=== PATIENT | female | born 1950 | race Caucasian/White ===

== ENCOUNTER 2023-06-04 16:28 | Inpatient (IN) | payer MEDICARE, SELFPAY ==
[2023-06-04 13:22] VITALS: BP 113/73
--- NOTE | 2023-06-04 14:03 | ED.GENMED ---
History of Present Illness
General
Chief Complaint: Rectal Bleeding
Source: patient and spouse
Time Seen by Provider: 06/04/23 13:29
Travel History
Have you had any contact with someone who has COVID-19?: No
Do you have any symptoms of coronavirus? Fever > 100 degrees, chills, cough, shortness of breath, sore throat, loss of taste or smell, muscle aches, or headache?: No
History of Present Illness
History of Present Illness:
72-year-old female with past medical history of CVA, hypertension, defibrillator placement presenting to the emergency department for evaluation of dark stool for about a week, coincided with symptoms of her having a URI at the beginning of all the
symptoms, stating she had a nonproductive cough and chest congestion. Patient went to her primary care doctor who prescribed her a cephalosporin and Tessalon Perles which she states she has been taking but without any relief of her symptoms and
notes that since starting the antibiotic she has had very loose stool. Patient notes that the diarrhea is usually only occurring after eating something. Patient was concerned because the diarrhea appeared dark and thought she may have some
bleeding. She denies any abdominal pain, nausea, vomiting, fevers, chills, rigors, lightheadedness, weakness or any other concerns.
Past History
Past History
ED Past Medical History: CVA, HTN, Hypercholesterolemia and Other (Carotid stenosis)
ED Past Surgical History: Cardiac (Defibrillator) and Other (CEA)
Social History
Tobacco: Former smoker (Quit 4 years ago after her stroke)
Alcohol: None
Drug: None
Personal:
Living: with family
Review of Systems
Review of Systems
All Other Systems: ROS reviewed and negative except as documented in HPI and ROS
Phy Exam
Physical Exam
Physical Exam:
GENERAL: Alert , in no apparent distress
EYE: clear conjunctiva b/l
HEAD: NCAT
ENT: o/p clr, mmm.
CARDIAC: Regular rate and rhythm .
LUNGS: Clear breath sounds bilaterally, no acute respiratory distress, no wheezes/rales/rhonchi, nonproductive cough sporadically noted
ABDOMEN: Soft, without focal tenderness, no r/g, no cvat
Rectal exam: Chaperoned by ED RN Pauletteaied, grayish stool, heme-negative
NEUROLOGICAL: Alert and oriented
SKIN: Warm and dry, skin intact.
MUSCULOSKELETAL: No edema, well perfused.
PSYCH: Normal and appropriate interaction.
Scores
Heart Failure Risk
Heart Failure Risk Score: Not Applicable
Heart Score for Chest Pain Patients
STEMI patient?: Not applicable
Withdrawal Assessment of Alcohol
Withdrawal Assessment Completed?: Not applicable
Course
Orders/Labs/Results
Orders:
Orders
06/04/23 13:45
IV Insert/Care/Rem.- Treatment PRN
06/04/23 13:49
Electrocardiogram (*1) Urgent
Reason for Study: Abdominal Pain
EKG- Treatment ONCE
Chest [CR Chest - 2 Views ] Urgent
Comment:
Reason For Exam: sob
06/04/23 13:53
STOOL [C difficile Antigen & Toxins] Urgent
FAVIOLA Source: Feces/Stool
Specimen Description:
Stool Culture Urgent
FAVIOLA Source: Feces/Stool
Specimen Description:
06/04/23 13:54
COVID-19 Antigen Urgent
Source: Nasal Swab
Complete Blood Count/With Diff Urgent
Comprehensive Metabolic Panel Urgent
Influenza A+B Rapid Molecular Urgent
FAVIOLA Source: Nasal Swab
Specimen Description:
06/04/23 14:24
0.9% Sodium Chloride 1000 ml [Nss] 1,000 ml IV BOLUS
06/04/23 15:19
CefTRIAXone [Rocephin] 1,000 mg IV NOW STA
Doxycycline [Vibramycin] 100 mg PO NOW STA
06/04/23 15:24
Guaifenesin/Codeine Solution [Robitussin AC] 5 ml PO NOW STA
06/04/23 15:58
Procalcitonin Urgent
PCT Algorithmm Indication: Respiratory
06/04/23 15:59
Admit/Transfer Patient As Directed
Co-Sign Provider:
Level of Care: Inpatient admission
Assign to:: Medical/Surgical
Physician / Group: Efra Perry
Diagnosis: Pneumonia/COPD
Reason for Hospitalization: nebs, antibiotics
Expected length of stay greater than two midnights?: Yes
ELOS- Estimated Length of Stay in days: 3
I certify the patient meets the requirements for IP care: Yes
06/04/23 16:04
Code Status As Directed
Resuscitation Status: Full Code
06/04/23 16:11
Legionella Urinary Antigen Urgent
FAVIOLA Source: Urine
Specimen Description:
Strep pneumoniae Antigen Urgent
FAVIOLA Source: Urine
Specimen Description:
Abnormal Lab Results
06/04/23
13:54
RBC 5.43 H 10^6/uL
(4.20-5.40)
Hgb 16.3 H g/dL
(12.0-16.0)
Hct 47.7 H %
(37.0-47.0)
Absolute Neuts (auto) 7.5 H 10^3/uL
(1.4-6.5)
Absolute Lymphs (auto) 1.1 L 10^3/uL
(1.2-3.4)
Neutrophils % 80.3 H %
(42.2-75.2)
Lymphocytes % 12.0 L %
(20.5-51.1)
Carbon Dioxide 32 H mmol/L
(22-30)
BUN 42 H mg/dl
(7-17)
Creatinine 1.5 H mg/dL
(0.6-1.0)
Glucose 124 H mg/dl
(70-99)
AST 47 H U/L
(14-36)
Alkaline Phosphatase 134 H U/L
(38-126)
06/04/23 13:54
06/04/23 13:54
Vital Signs
Initial and Last Documented VS:
Initial Vital Signs
Temp Pulse Resp BP Pulse Ox
97.8 F 88 18 113/73 94
06/04/23 13:22 06/04/23 13:22 06/04/23 13:22 06/04/23 13:22 06/04/23 13:22
Last Documented Vital Signs
Temp Pulse Resp BP Pulse Ox
97.8 F 73 18 105/82 95
06/04/23 13:22 06/04/23 15:15 06/04/23 13:22 06/04/23 15:15 06/04/23 15:15
MDM/Problems Addressed
Differential Diagnosis Includes:
Viral URI, pneumonia, antibiotic associated diarrhea, C. difficile colitis thought to be less likely given patient notes 1 episode of diarrhea daily (would expect this to be more persistent), electrolyte disturbance
MDM/Problems Addressed:
72-year-old female present emergency department for evaluation of dark stool x 1 week accompanied with diarrhea. Patient does not show any signs of hemodynamic instability and stool was heme-negative so I do not have concern for acute GI bleeding.
I do suspect patient's diarrhea is correlated with use of her antibiotic for the pneumonia she was diagnosed with by her primary care physician. Patient still notes symptomatic from her URI and I suspect that it was likely she either had a viral
URI versus antibiotic failure. Will obtain labs, chest x-ray and EKG. Reassessment following
*Radiology
Radiology exam reviewed: preliminary read by ED provider (Left lower lobe pneumonia)
*Pulse Oximetry
Patient hypoxic: no
*Critical Care Note
Total Time (30-74mins, 75-104mins- exclusive of procedures): Not Applicable
Patient Management
Discussion with other providers: Hospitalist
Escalation/DeEscalation of care consider admission/obs:
During patient's workup her pulse ox dropped into the upper 80s so we placed patient on 2 L via nasal cannula with good response. Chest x-ray does show a left lower lobe pneumonia. She does have a leftward shift despite no leukocytosis on her lab
work. Chemistry reveals an acute kidney injury and prerenal azotemia. Will treat with 1 L IV fluids. Due to worsening symptoms with outpatient antibiotics will admit for IV antibiotics and monitoring. Patient was unable to have a bowel movement
while in the ED but stool studies have been ordered. Hospitalist is aware and accepts patient for continued evaluation and treatment.
ED Attending Note
-
Portions of this chart may have been created with voice recognition software.� Occasional wrong word or��sound alike� substitutions may have occurred due to the inherent limitations of voice recognition software.
Discharge Plan
Departure
Patient Disposition: Admit
Date of Disposition: 06/04/23
Time of Disposition: 15:24
Presentation/result/management discussed w/ accepting MD/DO: Hospitalist
Discharge Problem:
Pneumonia, BREN (acute kidney injury), Diarrhea
Prescriptions:
No Action
atorvastatin 40 MG tablet
40 mg PO QPM
hydrochlorothiazide 12.5 MG capsule
12.5 mg PO DAILY
tizanidine 2 mg Tablet
2 mg PO Q8HPRN PRN (Reason: spasms)
aspirin 81 mg Tablet,Delayed Release (Dr/Ec)
81 mg PO DAILY
zinc sulfate 50 mg zinc (220 mg) Tablet
50 mg PO DAILY
ascorbic acid (vitamin C) [Vitamin C] 500 mg Tablet
500 mg PO DAILY
ferrous sulfate 325 mg (65 mg iron) Tablet
325 mg PO DAILY
ropinirole 0.5 mg Tablet
0.5 mg PO TID
vitamin B complex [B Complete] Tablet
1 tab PO DAILY
metoprolol tartrate 25 mg Tablet
25 mg PO BID
cholecalciferol (vitamin D3) [Vitamin D3] 25 mcg (1,000 unit) Tablet
25 mcg PO DAILY
magnesium oxide 200 mg magnesium Tablet
200 mg PO BID
omeprazole magnesium [Prilosec OTC] 20 MG tablet,delayed release (DR/EC)
20 mg PO BID
Referrals:
Dana Ruggiero CRNP [Family Provider] -
Interventions
Interventions:
*Risk Screen - Suicide Last Done: 06/04/23 13:43
*General Assessment Last Done: 06/04/23 13:22
*Neglect/Abuse Screening Last Done: 06/04/23 13:43
ED- Fall Risk Assessment Last Done: 06/04/23 13:43
*ED COVID-19 Vaccine History Last Done: 06/04/23 13:22
SS-Cbhxiy-Cmyoblexsh Assessment Last Done: 06/04/23 13:43
ED- Cardiac Assessment Last Done: 06/04/23 13:43
ED- Pulmonary Assessment Last Done: 06/04/23 13:43
[2023-06-04 14:04] LABS: % Basophils 0.4 % (0-2); % Eosinophils 0.3 % (0-6); % Immature Granulocytes 0.3 % (0-0.5); % Monocytes 6.7 % (1.7-9.3); % Neutrophils 80.3 % (42.2-75.2); Absolute Lymphocytes 1.1 10^3/uL (1.2-3.4); Absolute Monocytes 0.6 10^3/uL (0.1-0.6); Absolute Neutrophils 7.5 10^3/uL (1.4-6.5); Hematocrit 47.7 % (37.0-47.0); Hemoglobin 16.3 g/dL (12.0-16.0); Mean Corp Hgb Conc. 34.2 g/dL (33.0-37.0); Mean Corpuscular Volume 87.8 fL (81.0-99.0); Mean Platelet Volume 9.7 fL (7.4-10.4); Nucleated Red Blood Cells % 0 %; Platelet Count 327 10^3/uL (130-400); Red Blood Cell Count 5.43 10^6/uL (4.20-5.40); Red Cell Dist. Width 12.4 % (11.5-14.5); White Blood Cell Count 9.3 10^3/uL (4.8-10.8)
[2023-06-04 14:17] LABS: ALT (SGPT) 35 U/L (0-35); AST (SGOT) 47 U/L (14-36); Albumin 4.4 g/dl (3.5-5.0); Alkaline Phosphatase 134 U/L (38-126); Blood Urea Nitrogen 42 mg/dl (7-17); Calcium 9.3 mg/dl (8.4-10.2); Carbon Dioxide 32 mmol/L (22-30); Chloride 98 mmol/L (98-107); Glucose 124 mg/dl (70-99); Potassium 3.5 mmol/L (3.5-5.1); Sodium 138 mmol/L (135-145); Total Bilirubin 0.9 mg/dl (0.2-1.3); Total Protein 7.5 g/dl (6.3-8.2); eGFR 37.03
[2023-06-04] MEDS: NSS 1000 IV ×2 (14:33→21:13)
[2023-06-04 14:42] LABS: COVID-19 Antigen Negative (Negative)
[2023-06-04 15:15] VITALS: BP 105/82
[2023-06-04] MEDS: VIBRAMYCIN 100 MG PO (15:41)
[2023-06-04] MEDS: ROBITUSSIN AC 5 ML PO (15:41)
[2023-06-04] MEDS: ROCEPHIN 1000 MG IV (15:41)
--- NOTE | 2023-06-04 16:18 | HPS.HSE ---
Addendum entered and electronically signed by Efra Perry MD 06/04/23 16:45:
72-year-old female with a past medical history of former smoker, hyperlipidemia, CVA, hypertension, and gastroesophageal reflux disease presents with worsening respiratory symptoms for 2 weeks despite taking 10 days of cefuroxime. She denies fever,
denies chest pain. She has been having black diarrhea, this is different from the color of her stools from iron.
Chest x-ray is negative for acute abnormality.
She is influenza negative, COVID-negative.
Auscultation reveals left basilar crackles.
Treat with IV antibiotics, bronchodilators
Check procalcitonin, check urine Legionella antigen/strep antigen, check sputum Gram stain and culture, check chest ultrasound and echocardiogram. She is not wheezing, will hold on steroids.
For her black stools, she is heme-negative in the ER. Will treat with Protonix 40 mg IV twice daily, trend hemoglobin.
She has acute kidney injury, from dehydration and diarrhea. Give IV fluids, no nephrotoxic drugs/NSAIDs, trend creatinine.
I have personally seen and examined the patient, and agree with the plan of care as documented by Skye Coughlin PA-C.
Advance care planning discussed, patient is a full code.
All other issues as outlined by the advanced care practitioner.
Total time spent to see the patient on the floor, examine the patient, review data and lab results, discuss treatment plan with patient, nursing staff around 75 minutes.
Original Note:
Family Physician
-
Family Physician: MURIEL Alonso
Chief Complaint
-
Cough, and black diarrhea
History of Present Illness
Patient is a 72-year-old female past medical history of CVA, hypertension, hyperlipidemia who presents with persistent cough and black diarrhea. Patient reports she started with symptoms of upper respiratory infection about 2 weeks ago. She saw
her primary care provider who started her on cefuroxime which she has taken for the past 10 days. She reports despite antibiotic she continues with significant cough. She describes the cough as moist, but nonproductive. She denies associated
shortness of breath, chest pain, fever, sweats or chills. She admits to generalized weakness and fatigue. She also notes black diarrhea which has been ongoing since she started the oral antibiotic. She does admit to taking iron, but states her
stools are usually brown. She denies any abdominal pain, nausea, or vomiting.
Medical History
Past Medical History
Past Medical History: Reports Other
Additional Past Medical History:
CVA
Essential Hypertension
Hyperlipidemia
Moderate Mitral Regurgitation
Restless Less Syndrome
Past Surgical History: Reports Other
Additional Past Surgical History:
Right CEA
Social History
Tobacco: Former Smoker (Quit in 2019)
Family History
Family History: Not pertinent
Allergies / Home Medications
Allergies reflects when Allergies were last updated in [facility].
Home Medications with original date entered in [facility]
Allergy/Medication List:
Allergies
Allergy/AdvReac Type Severity Reaction Status Date / Time
seasonal Allergy runny nose Uncoded 06/04/23 13:26
Home Medications
atorvastatin 40 mg tablet 40 mg PO QPM High cholesterol 10/24/19
hydrochlorothiazide 12.5 mg capsule 12.5 mg PO DAILY Blood pressure 10/24/19
ascorbic acid (vitamin C) 500 mg tablet (Vitamin C) 500 mg PO DAILY Supplement 06/04/23
aspirin 81 mg tablet,delayed release 81 mg PO DAILY Blood Clot Prevention/Tx 06/04/23
cholecalciferol (vitamin D3) 25 mcg (1,000 unit) tablet (Vitamin D3) 25 mcg PO DAILY Supplement 06/04/23
ferrous sulfate 325 mg (65 mg iron) tablet 325 mg PO DAILY Supplement 06/04/23
magnesium oxide 200 mg PO BID Supplement 06/04/23
metoprolol tartrate 25 mg tablet 25 mg PO BID Blood Pressure 06/04/23
omeprazole magnesium 20 mg tablet,delayed release (Prilosec OTC) 20 mg PO BID Gastrointestinal Issue 06/04/23
ropinirole 0.5 mg tablet 0.5 mg PO TID Neurological Condition 06/04/23
tizanidine 2 mg tablet 2 mg PO Q8HPRN PRN spasms 06/04/23
vitamin B complex 1 tab PO DAILY Supplement 06/04/23
zinc sulfate 50 mg zinc (220 mg) tablet 50 mg PO DAILY Supplement 06/04/23
Review of Systems
-
A 12 point ROS was completed and negative except as noted: Yes
Constitutional: Denies Fever or Chills
Respiratory: Reports See HPI
Cardiac: Denies Chest Pain or Palpitations
Physical Exam
Vital Signs
Vital Signs
Temp Pulse Resp BP Pulse Ox
97.8 F 73 18 105/82 95
06/04/23 13:22 06/04/23 15:15 06/04/23 13:22 06/04/23 15:15 06/04/23 15:15
Physical Exam
General: Comfortable and Conversant
HEENT: Anicteric, Moist mucous membranes and Oxygen (Nasal cannula)
Respiratory: Rales (Left base) and Rhonchi (Diffuse)
Cardiac: S1/S2 and Regular Rhythm
GI: Soft and Non Tender
Rectal: Hem Negative (Per ED Provider)
Musculoskeletal: No Clubbing, No Cyanosis and No Edema
Skin: Warm, Dry and Rash
Neuro: Awake, Alert, Oriented and Nonfocal/grossly intact
Laboratory Results
-
06/04/23 13:54
06/04/23 13:54
Laboratory Results
Total Bilirubin 0.9 mg/dl (0.2-1.3) 06/04/23 13:54
AST 47 U/L (14-36) H 06/04/23 13:54
ALT 35 U/L (0-35) 06/04/23 13:54
Alkaline Phosphatase 134 U/L (38-126) H 06/04/23 13:54
Data Reviewed
-
Diagnostic Radiology: Report Reviewed by me
Lab Data: Labs Reviewed by me
Impression/Plan
-
Acute Bronchitis with possible underlying chronic lung disease
-Continue Zithromax and Rocephin
-Continue Duoneb and Pulmicort Neb
-Continue Mucinex
-Encourage use of incentive spirometer and Acapella device
Acute Kidney Injury secondary to volume depletion in setting of diarrhea
-Hold HCTZ
-Give IVFs overnight
-Recheck creatinine in AM
Black Diarrhea, likely antibiotic associated diarrhea
-Heme-Negative in ED - Will continue to heme test and monitor Hgb
-Continue probiotic
Right Temporal Lobe CVA in 2019 s/p Right CEA
-Continue Aspirin
Essential Hypertension
-Continue metoprolol
-HCTZ on hold
Hyperlipidemia
-Continue atorvastatin
Restless Less Syndrome
-Continue ropinirole
DVT proph: SCDs
Code Status: Full Code
[2023-06-04 18:06] LABS: Procalcitonin < 0.05 ng/ml (0.0-0.25)
[2023-06-04 18:08] VITALS: BP 133/70
[2023-06-04 20:25] VITALS: BMI 30.8
[2023-06-04 20:32] VITALS: BP 137/78
[2023-06-04] MEDS: DUONEB 3 ML INH (20:46)
[2023-06-04] MEDS: PULMICORT 0.5 MG INH (20:46)
[2023-06-04] MEDS: REQUIP 0.5 MG PO (21:12)
[2023-06-04] MEDS: MUCINEX 600 MG PO (21:12)
[2023-06-04] MEDS: FLORASTOR 250 MG PO (21:12)
[2023-06-04] MEDS: PROTONIX 40 MG PO (21:12)
[2023-06-04] MEDS: LOPRESSOR 25 MG PO (21:12)
[2023-06-04] MEDS: LIPITOR 40 MG PO (21:12)
[2023-06-05 00:02] VITALS: BP 130/52
--- NOTE | 2023-06-05 04:58 | PTCARENOTE ---
Pt arrived on floor @8:30. Able to walk into room with no assistance. Pt in stable condition, oriented to room and call sams. Will continue to monitor
[2023-06-05 07:30] VITALS: BP 140/74
[2023-06-05] MEDS: ZINC SULFATE 220 MG PO (07:46)
[2023-06-05] MEDS: REQUIP 0.5 MG PO ×3 (07:46→21:54)
[2023-06-05] MEDS: ZITHROMAX 500 MG PO (07:47)
[2023-06-05] MEDS: B COMPLEX w/VITAMIN C 1 CAPLET PO (07:48)
[2023-06-05] MEDS: ASPIR LOW (ENTERIC COATED) 81 MG PO (07:48)
[2023-06-05] MEDS: PROTONIX 40 MG PO ×2 (07:48→21:54)
[2023-06-05] MEDS: VITAMIN C 500 MG PO (07:48)
[2023-06-05] MEDS: MUCINEX 600 MG PO ×2 (07:48→21:54)
[2023-06-05] MEDS: FLORASTOR 250 MG PO ×2 (07:49→21:54)
[2023-06-05] MEDS: FEOSOL 325 MG PO (07:49)
[2023-06-05] MEDS: VITAMIN D3 (cholecalciferol) 25 MCG PO (07:49)
[2023-06-05] MEDS: LOPRESSOR 25 MG PO (07:50)
--- NOTE | 2023-06-05 08:15 | W.PN.HOSP.TC ---
Today's Communication/Plan
-
Check chest ultrasound
Consult pulmonology
Assessment / Plan
Assessment / Plan
72-year-old female with a past medical history of former smoker, hyperlipidemia, CVA, hypertension, and gastroesophageal reflux disease presents with worsening respiratory symptoms for 2 weeks despite taking 10 days of cefuroxime.� She denies fever,
denies chest pain.� She has been having black diarrhea, this is different from the color of her stools from iron
#Postinfectious hypoxia
#Recent upper respiratory tract infection
Status post 10 days of oral cefuroxime prior to admission
Procalcitonin negative, will discontinue antibiotics
Currently requiring 2 L of oxygen, wean as tolerated
Patient was a former smoker, quit 4 years ago
Continue bronchodilators, consult pulmonology
#Acute kidney injury
Secondary to dehydration
Hold hydrochlorothiazide, resolved with IV fluids
#Left basilar crackles
Check chest ultrasound to evaluate for pleural effusion
#Moderate mitral regurgitation
Echo 05/14/23:
�Normal biventricular size and systolic function without regional wall motion
�abnormality. Estimated LVEF 55-60%.
�Mild concentric left ventricular hypertrophy.
�Moderate eccentric mitral regurgitation.
�Aortic sclerosis without stenosis. Trace aortic regurgitation.
#Black diarrhea
Resolved, she has not had a bowel movement since admission
Continue probiotic, she is currently on iron supplements
Essential Hypertension
-Continue metoprolol
-HCTZ on hold
Hyperlipidemia
-Continue atorvastatin
Restless Less Syndrome
-Continue ropinirole
DVT proph: SCDs
Full Code
Total time spent to see the patient on the floor, examine the patient, review data and lab results, discuss treatment plan with patient, nursing staff around 51 minutes.
Physical Exam
General: Appears to not feel well, but in no acute distress
HEENT: Normocephalic, Atraumatic, EOMI, MMM
Respiratory: Left basilar crackles
Cardiac: Normal S1/S2, Regular Rate and Rhythm
GI: Soft, Nontender, Nondistended, Normal Bowel Sounds
Extremities: No Clubbing, Cyanosis, or Edema
Anticipated Discharge: Within 24 hours
Subjective/Interval History
-
Date of Service: June 05, 2023
Patient feels much better today. Denies shortness of breath. Cough improved.
Objective Data
-
Labs:
Laboratory Results
06/05/23
06:00
WBC Pending
Hgb Pending
Hct Pending
Plt Count Pending
Sodium Pending
Potassium Pending
Chloride Pending
Carbon Dioxide Pending
BUN Pending
Creatinine Pending
Glucose Pending
Calcium Pending
Vital Signs:
Vital Signs
Temp Pulse Resp BP Pulse Ox
97.8 F 75 17 140/74 93
06/05/23 07:30 06/05/23 07:50 06/05/23 07:30 06/05/23 07:50 06/05/23 07:30
I&O
06/04/23 06/05/23 06/06/23
06:59 06:59 06:59
Intake Total 750 / 750
Balance 750 / 750
[2023-06-05] MEDS: PULMICORT 0.5 MG INH ×2 (08:17→20:52)
[2023-06-05] MEDS: DUONEB 3 ML INH (08:17)
[2023-06-05 09:02] LABS: Hematocrit 44.7 % (37.0-47.0); Hemoglobin 14.9 g/dL (12.0-16.0); Mean Corp Hgb Conc. 33.3 g/dL (33.0-37.0); Mean Corpuscular Hgb 29.7 pg (27.0-31.0); Mean Corpuscular Volume 89.2 fL (81.0-99.0); Mean Platelet Volume 9.9 fL (7.4-10.4); Platelet Count 278 10^3/uL (130-400); Red Blood Cell Count 5.01 10^6/uL (4.20-5.40); Red Cell Dist. Width 12.7 % (11.5-14.5); White Blood Cell Count 6.6 10^3/uL (4.8-10.8)
[2023-06-05 09:29] LABS: Blood Urea Nitrogen 33 mg/dl (7-17); Calcium 8.4 mg/dl (8.4-10.2); Carbon Dioxide 29 mmol/L (22-30); Chloride 101 mmol/L (98-107); Estimated Creatinine Clearance 55 ml/min; Glucose 134 mg/dl (70-99); Potassium 3.1 mmol/L (3.5-5.1); Sodium 137 mmol/L (135-145); eGFR > 60.00
[2023-06-05 11:00] LABS: Magnesium 2.7 mg/dl (1.6-2.3)
[2023-06-05] MEDS: KCL 40 MEQ PO ×2 (11:32→15:57)
--- NOTE | 2023-06-05 14:01 | CON.PUL ---
Consultation
Consultation Request
Date/Time Consultation Requested: 06/05/2023
Date/Time Consultation Performed: 06/05/2023
Reason for Consultation: Shortness of breath, bronchitis
Medical History
-
History of Present Illness:
History obtained from the chart, reviewing outpatient records and from the patient. Pleasant 72-year-old female with history of hypertension, cryptogenic stroke 4 years ago, significant tobacco history, mitral regurgitation presents on 06/04/2023
with bronchitis. She describes about 10 to 15 days of chronic bronchitis, difficult to expectorate, chest congestion. She also had history of dark stool after defibrillator placement. She was given outpatient antibiotic and antitussive therapy
without any improvement. This led to worsening diarrhea. She denies any fevers, chills, falls, syncope, swallowing issues. Upon arrival to [facility], afebrile, pulse 80, breathing 18, blood pressure 113/73, 94%. She was heme-negative in
the ED. We are asked to help from a pulmonary standpoint
Of note, patient feels her cough has improved significantly since admission. She is noted to have significant productive cough with few teaspoons of thick mucus, no blood. She is ambulating the myrick without difficulty
.
PMH: History of cryptogenic stroke 2019, hypertension, hyperlipidemia, restless leg syndrome, mitral regurgitation, peripheral arterial disease with right carotid endarterectomy
Past Medical History
Past Medical History: None (See above)
Past Surgical History: None (See above)
Social History
Tobacco: Former Smoker ([id number] history of smoking quit 2019)
Alcohol: Occasional
Drug: None
Personal:
Living: With Family
Employment: Retired
Family History
Family History: Other (Negative for lung disease, lung cancer. There is a history of leukemia in her mother, 82)
Allergies / Home Medications
Allergies
Allergy/AdvReac Type Severity Reaction Status Date / Time
pollen extracts Allergy SEASONAL-RUNNY Verified 06/04/23 20:15
NOSE
Home Medications
Medication Instructions Recorded Confirmed Last Taken Type
atorvastatin 40 mg tablet 40 mg PO QPM High cholesterol 10/24/19 06/04/23 06/03/23 History
hydrochlorothiazide 12.5 mg capsule 12.5 mg PO DAILY Blood pressure 10/24/19 06/04/23 06/04/23 History
ascorbic acid (vitamin C) 500 mg 500 mg PO DAILY Supplement 06/04/23 06/04/23 06/04/23 History
tablet (Vitamin C)
aspirin 81 mg tablet,delayed 81 mg PO DAILY Blood Clot 06/04/23 06/04/23 06/04/23 History
release Prevention/Tx
cholecalciferol (vitamin D3) 25 25 mcg PO DAILY Supplement 06/04/23 06/04/23 06/04/23 History
mcg (1,000 unit) tablet (Vitamin
D3)
ferrous sulfate 325 mg (65 mg 325 mg PO DAILY Supplement 06/04/23 06/04/23 06/04/23 History
iron) tablet
magnesium oxide 200 mg PO BID Supplement 06/04/23 06/04/23 06/04/23 History
metoprolol tartrate 25 mg tablet 25 mg PO BID Blood Pressure 06/04/23 06/04/23 06/04/23 History
omeprazole magnesium 20 mg 20 mg PO BID Gastrointestinal Issue 06/04/23 06/04/23 06/04/23 History
tablet,delayed release (Prilosec
OTC)
ropinirole 0.5 mg tablet 0.5 mg PO TID Neurological 06/04/23 06/04/23 06/04/23 History
Condition
tizanidine 2 mg tablet 2 mg PO Q8HPRN PRN spasms 06/04/23 06/04/23 Unknown History
vitamin B complex 1 tab PO DAILY Supplement 06/04/23 06/04/23 06/04/23 History
zinc sulfate 50 mg zinc (220 mg) 50 mg PO DAILY Supplement 06/04/23 06/04/23 06/04/23 History
tablet
Review of Systems
-
All other systems: Negative unless noted
Vitals / Labs / Diagnostic Testing
Vital Signs
Temp Pulse Resp BP Pulse Ox
97.8 F 89 20 140/74 97
06/05/23 07:30 06/05/23 08:23 06/05/23 08:23 06/05/23 07:50 06/05/23 08:23
Lab Data
06/05/23 08:19
06/05/23 08:19
Microbiology
06/04/23 22:10 Sputum Gram Stain - Preliminary
06/04/23 13:54 Nasal Swab Influenza Types A & B (STEPHON) - Final
Negative for Influenza A & B, NAAT
Negative results must be combined with clinical observations
and patient history.
Nucleic Acid Amplification test (NAAT)performed on the
[employer] platform.
Diagnostic Testing:
Physical Exam
-
HEENT: Normocephalic, Anicteric and Other (Narrow oropharynx)
Cardiovascular: S1/S2, Regular Rhythm, Murmur (n), Rub, Peripheral Edema (n) and Calf Tenderness (n)
Respiratory: Wheeze (Scattered inspiratory squeaks), Rales (Few crackles at the base), Rhonchi (Bibasilar rhonchi) and Non-Labored Respirations
GI: Soft, Non Distended and Non Tender
Neurology: Awake, Alert, Oriented and No Motor Deficits
Skin: Good Color (No skin rash) and Other (No clubbing, cyanosis)
General: Comfortable
Assessment
-
72-year-old female with history of cryptogenic stroke, severe MR, peripheral arterial disease, hypertension with significant smoking history who presents with 10 days of bronchitic symptoms. She also had diarrhea, questionable blood in stool after
recent course of antibiotics as outpatient. We are asked to comment on her pulmonary process
Wheezing, squeaks, rhonchi on exam
Intermittent hypoxia requiring oxygen therapy, 93% on 1 L
Acute bronchitis x 10 days
Suspected left basilar atelectasis per chest x-ray
Moderate mitral regurgitation, aortic sclerosis
Normal biventricular function
Conditions present prior to admission
Peripheral arterial disease
hx of rCEA
Hypertension/hyperlipidemia
History of stroke 2019
[id number] history of smoking, quit 2019
Restless leg syndrome
Suspected sleep disordered breathing
Plan/recommendations
At this time, patient appears to be objectively and subjectively improved. She admits to improvement in her bronchitic symptoms
However, she has an abnormal chest exam with wheezes, squeaks, rhonchi at the base
Upon completing airway clearance measures at the bedside with Acapella, incentive spirometry, she has evidence of retained secretions
Denies aspiration, choking
Chest x-ray with mild left basilar atelectasis
Moving forward
She will require continued airway clearance measures, continue as you are with Acapella/incentive spirometry
Case management to set up home nebulizer with duonebs
Presently she is on budesonide twice a day
Given her smoking history, abnormal exam, would recommend outpatient pulmonary follow-up
She would benefit from PFT
She would benefit from lung cancer screening
She may benefit from sleep disorder workup given history of stroke
Anticipate disposition in the next 24 hours. Information left in chart for pulmonary follow-up
All questions answered
[2023-06-05 14:40] VITALS: O2SAT 93
[2023-06-05 15:19] VITALS: BP 99/53
[2023-06-05 16:02] VITALS: BMI 30.8
--- NOTE | 2023-06-05 16:45 | CM ---
aquatic facility manager reviewed patient's chart and met with patient and patient lives with her spouse in a 2 story home, patient is independent with adl's and ambulation, no dme, patient drives, patient has a prescription plan and patient uses [facility]
pharmacy.
Patient will need a nebulizer at discharge and behavioral health case manager informed patient she could purchase a nebulizer at [facility] her pharmacy at discharge.
PCP: Dr. Bedolla
Plan; Home with spouse when stable.
[2023-06-05] MEDS: LIPITOR 40 MG PO (17:49)
[2023-06-05] MEDS: LOPRESSOR PO (22:01)
[2023-06-05 23:39] VITALS: BP 127/65
[2023-06-06 05:54] VITALS: BMI 31.2
[2023-06-06 07:27] LABS: Hematocrit 41.2 % (37.0-47.0); Hemoglobin 13.9 g/dL (12.0-16.0); Mean Corp Hgb Conc. 33.7 g/dL (33.0-37.0); Mean Corpuscular Hgb 29.7 pg (27.0-31.0); Mean Platelet Volume 9.6 fL (7.4-10.4); Platelet Count 260 10^3/uL (130-400); Red Blood Cell Count 4.68 10^6/uL (4.20-5.40); White Blood Cell Count 5.9 10^3/uL (4.8-10.8)
[2023-06-06 07:47] LABS: Blood Urea Nitrogen 36 mg/dl (7-17); Calcium 9.2 mg/dl (8.4-10.2); Carbon Dioxide 29 mmol/L (22-30); Chloride 105 mmol/L (98-107); Estimated Creatinine Clearance 55 ml/min; Glucose 90 mg/dl (70-99); Magnesium 2.4 mg/dl (1.6-2.3); Phosphorus 3.2 mg/dl (2.5-4.5); Potassium 4.2 mmol/L (3.5-5.1); Sodium 142 mmol/L (135-145); eGFR > 60.00
[2023-06-06] MEDS: PULMICORT 0.5 MG INH (08:23)
[2023-06-06] MEDS: DUONEB 3 ML INH (08:24)
[2023-06-06 08:32] VITALS: BP 158/89
[2023-06-06] MEDS: FEOSOL 325 MG PO (08:52)
[2023-06-06] MEDS: ZINC SULFATE 220 MG PO (08:52)
[2023-06-06] MEDS: LOPRESSOR 25 MG PO (08:52)
[2023-06-06] MEDS: VITAMIN D3 (cholecalciferol) 25 MCG PO (08:53)
[2023-06-06] MEDS: ASPIR LOW (ENTERIC COATED) 81 MG PO (08:53)
[2023-06-06] MEDS: PROTONIX 40 MG PO (08:53)
[2023-06-06] MEDS: B COMPLEX w/VITAMIN C 1 CAPLET PO (08:53)
[2023-06-06] MEDS: FLORASTOR 250 MG PO (08:53)
[2023-06-06] MEDS: VITAMIN C 500 MG PO (08:53)
[2023-06-06] MEDS: REQUIP 0.5 MG PO (08:53)
[2023-06-06] MEDS: MUCINEX 600 MG PO (08:53)
--- NOTE | 2023-06-06 09:05 | W.PN.HOSP.TC ---
Today's Communication/Plan
-
Discharge today
Assessment / Plan
Assessment / Plan
72-year-old female with a past medical history of former smoker, hyperlipidemia, CVA, hypertension, and gastroesophageal reflux disease presents with worsening respiratory symptoms for 2 weeks despite taking 10 days of cefuroxime.� She denies fever,
denies chest pain.� She has been having black diarrhea, this is different from the color of her stools from iron
#Postinfectious hypoxia
#Recent upper respiratory tract infection
Status post 10 days of oral cefuroxime prior to admission
Procalcitonin negative, discontinued antibiotics
Hypoxia resolved, currently satting 97% on room air
Patient was a former smoker, quit 4 years ago
Appreciate pulmonology input, recommend outpatient follow-up for lung cancer screening, PFT and sleep study
Will discharge home on Pulmicort nebs, DuoNebs as needed, case management to assist with getting nebulizer machine
#Acute kidney injury
Secondary to dehydration
Hold hydrochlorothiazide, resolved with IV fluids
#Left basilar crackles
Chest ultrasound negative for pleural effusion
#Moderate mitral regurgitation
Echo 05/14/23:
�Normal biventricular size and systolic function without regional wall motion
�abnormality. Estimated LVEF 55-60%.
�Mild concentric left ventricular hypertrophy.
�Moderate eccentric mitral regurgitation.
�Aortic sclerosis without stenosis. Trace aortic regurgitation.
#Black diarrhea
Resolved, she has not had a bowel movement since admission
Continue probiotic, she is currently on iron supplements
Essential Hypertension
-Continue metoprolol
-Recommend stopping hydrochlorothiazide, will discharge on amlodipine 5 mg daily
Hyperlipidemia
-Continue atorvastatin
Restless Less Syndrome
-Continue ropinirole
DVT proph: SCDs
Full Code
Physical Exam
General: Appears to not feel well, but in no acute distress
HEENT: Normocephalic, Atraumatic, EOMI, MMM
Respiratory: Left basilar wheezes, squeaks, rhonchi
Cardiac: Normal S1/S2, Regular Rate and Rhythm
GI: Soft, Nontender, Nondistended, Normal Bowel Sounds
Extremities: No Clubbing, Cyanosis, or Edema
Anticipated Discharge: Today
Subjective/Interval History
-
Date of Service: June 06, 2023
Patient reports feeling better, cough improved, shortness of breath resolved.
Objective Data
-
Labs:
Laboratory Results
06/06/23
07:02
WBC 5.9
Hgb 13.9
Hct 41.2
Plt Count 260
Sodium 142
Potassium 4.2 D
Chloride 105
Carbon Dioxide 29
BUN 36 H
Creatinine 0.9
Glucose 90
Calcium 9.2
Vital Signs:
Vital Signs
Temp Pulse Resp BP Pulse Ox
97.9 F 107 18 158/89 97
06/06/23 08:32 06/06/23 08:32 06/06/23 08:32 06/06/23 08:52 06/06/23 08:32
I&O
06/05/23 06/06/23 06/07/23
06:59 06:59 06:59
Intake Total 750 / 750 1020 / 1020
Balance 750 / 750 1020 / 1020
--- NOTE | 2023-06-06 10:49 | W.DCSUMMARY ---
Discharge Summary
Discharge Data
Date of Admission: 06/04/23
Date of Discharge: 06/06/23
-
Pending Results: No
Hospital Course
Discharge diagnosis:
Post infectious hypoxia
Recent upper respiratory infection
History of smoking
Acute kidney injury
Antibiotic associated diarrhea
Black stools, heme-negative
Essential hypertension
Moderate mitral regurgitation
Consults: Pulmonology
Chest x-ray:
No active cardiopulmonary disease.
Hospital course:
72-year-old female with a past medical history of former smoker, hyperlipidemia, CVA, hypertension, and gastroesophageal reflux disease presents with worsening respiratory symptoms for 2 weeks despite taking 10 days of cefuroxime.� She denies fever,
denies chest pain.� She has been having black diarrhea, this is different from the color of her stools from iron.
Patient was admitted for postinfectious hypoxia and acute kidney injury. She was hypoxic, requiring 2 L. She initially received IV antibiotics. Procalcitonin was negative, antibiotics were discontinued. She was seen in conjunction with
pulmonology, and received Pulmicort nebs as well as DuoNebs. She was also treated with Acapella valve and incentive spirometry. Her hypoxia resolved. Pulmonology recommends continuing the nebulizing treatments upon discharge. She needs to
follow-up with pulmonology in the office for lung cancer screening, PFTs, and sleep study.
Patient had acute kidney injury secondary to dehydration from her antibiotic associated diarrhea. She received IV fluids, probiotics. Her hydrochlorothiazide was held. She was changed to amlodipine 5 mg daily for her high blood pressure. Her
diarrhea and acute kidney injury resolved.
As far as her black stools, she was heme negative in the ER. Her hemoglobin was monitored, and remained normal.
Patient is medically stable for discharge. She needs to follow-up with pulmonology in the office, as well as her primary care doctor in 1 week.
Disposition: Home self-care
Discharge planning: Required 34 minutes
Discharge Plan
-
Patient Disposition: Home (Routine Discharge)
Discharge Diagnosis/Procedures: Postinfectious hypoxia, former smoker, dehydration, acute kidney injury, antibiotic associated diarrhea
Condition: Good
Diet: Low Fat and Low Cholesterol
Activity: As tolerated
Driving Restrictions: As prior to admission
Activity Restrictions/Additional Instructions:
You had acute kidney injury secondary to dehydration.
Hydrochlorothiazide is a medication that can worsen dehydration.
We recommend you stopping hydrochlorothiazide, and instead have prescribed amlodipine 5 mg daily for your high blood pressure.
Follow-up with pulmonology in the office as directed, as well as your primary care doctor in 1 week.
Referrals:
Keyanna Salcedo MD [Active] -
(4-6 weeks (PFT)
review airway clearance measures and lung cancer screening)
Dana Ruggiero CRNP [Family Provider] - in one week
Prescriptions:
New
ipratropium-albuterol 0.5 mg-3 mg(2.5 mg base)/3 mL Solution For Nebulization
3 ml inhalation R Q4HPRN PRN (Reason: shortness of breath/wheezing) Qty: 30 0RF
guaifenesin 600 mg Tablet Extended Release 12hr
600 mg PO Q12 Qty: 30 0RF
budesonide 0.5 mg/2 mL Suspension For Nebulization
0.5 mg inhalation R BID Qty: 60 0RF
amlodipine 5 mg Tablet
5 mg PO DAILY Qty: 30 0RF
Continued
atorvastatin 40 MG tablet
40 mg PO QPM
tizanidine 2 mg Tablet
2 mg PO Q8HPRN PRN (Reason: spasms)
aspirin 81 mg Tablet,Delayed Release (Dr/Ec)
81 mg PO DAILY
zinc sulfate 50 mg zinc (220 mg) Tablet
50 mg PO DAILY
ascorbic acid (vitamin C) [Vitamin C] 500 mg Tablet
500 mg PO DAILY
ferrous sulfate 325 mg (65 mg iron) Tablet
325 mg PO DAILY
ropinirole 0.5 mg Tablet
0.5 mg PO TID
vitamin B complex Tablet
1 tab PO DAILY
metoprolol tartrate 25 mg Tablet
25 mg PO BID
cholecalciferol (vitamin D3) [Vitamin D3] 25 mcg (1,000 unit) Tablet
25 mcg PO DAILY
magnesium oxide 200 mg magnesium Tablet
200 mg PO BID
omeprazole magnesium [Prilosec OTC] 20 MG tablet,delayed release (DR/EC)
20 mg PO BID
Discontinued
hydrochlorothiazide 12.5 MG capsule
12.5 mg PO DAILY
Discharge Orders:
Discharge Patient (As Directed); Ordered 06/06/23
Ordered By: Efra Perry
Discharge Date and Time
Discharge Date/Time: 06/06/23 13:36
--- NOTE | 2023-06-06 11:02 | CM ---
Patient seen bedside.
Patient denies home care needs.
Patient will need a script for nebulizer, MD and RN aware.
Patients spouse will transport.
IMM completed.
Plan: home no needs (needs script for nebulizer)
[2023-06-06] MEDS: NORVASC 5 MG PO (11:25)
== END 2023-06-06 13:36 | disposition home or self-care (01) | DRG 683 ==
LOC: 4 WEST ACU 16:28
PROVIDERS: Physician Assistant Medical; ADMITTING PHYSICIAN Family Medicine; CONSULT PHYSICIAN Internal Medicine Critical Care Medicine; EMERGENCY PHYSICIAN Emergency Medicine; FAMILY PHYSICIAN Nurse Practitioner Family
DX: N17.9 Acute kidney failure, unspecified (principal); J44.0 Chronic obstructive pulmonary disease with (acute) lower respiratory infection; K52.1 Toxic gastroenteritis and colitis; J98.11 Atelectasis; E86.0 Dehydration; J20.9 Acute bronchitis, unspecified; I10 Essential (primary) hypertension; E78.00 Pure hypercholesterolemia, unspecified; R09.02 Hypoxemia; T36.95XA Adverse effect of unspecified systemic antibiotic, initial encounter; I34.0 Nonrheumatic mitral (valve) insufficiency; Z87.891 Personal history of nicotine dependence; Z11.52 Encounter for screening for COVID-19; G25.81 Restless legs syndrome; I70.0 Atherosclerosis of aorta; I73.9 Peripheral vascular disease, unspecified; Z79.82 Long term (current) use of aspirin; Z86.73 Personal history of transient ischemic attack (TIA), and cerebral infarction without residual deficits
CPT/HCPCS: 71046; 76604; 80048; 80053; 83735; 84100; 84145; 85025; 85027; 87070; 87205; 87502; 87811; 93005; 94640; 96361; 96374; 97161; 99285

== ENCOUNTER → 2023-06-19 07:06 | Outpatient (REF) | payer MEDICARE, SELFPAY ==
[2023-06-19 10:02] LABS: % Basophils 1.1 % (0-2); % Eosinophils 5.1 % (0-6); % Immature Granulocytes 0.3 % (0-0.5); % Monocytes 8.6 % (1.7-9.3); % Neutrophils 63.9 % (42.2-75.2); Absolute Basophils 0.1 10^3/uL (0-0.2); Absolute Eosinophils 0.3 10^3/uL (0-0.7); Absolute Lymphocytes 1.4 10^3/uL (1.2-3.4); Absolute Monocytes 0.6 10^3/uL (0.1-0.6); Absolute Neutrophils 4.2 10^3/uL (1.4-6.5); Hematocrit 42.5 % (37.0-47.0); Hemoglobin 14.1 g/dL (12.0-16.0); Mean Corp Hgb Conc. 33.2 g/dL (33.0-37.0); Mean Corpuscular Hgb 29.6 pg (27.0-31.0); Mean Corpuscular Volume 89.3 fL (81.0-99.0); Mean Platelet Volume 9.8 fL (7.4-10.4); Nucleated Red Blood Cells % 0 %; Platelet Count 260 10^3/uL (130-400); Red Blood Cell Count 4.76 10^6/uL (4.20-5.40); White Blood Cell Count 6.6 10^3/uL (4.8-10.8)
[2023-06-19 10:10] LABS: ALT (SGPT) 75 U/L (0-35); AST (SGOT) 66 U/L (14-36); Albumin 4.1 g/dl (3.5-5.0); Alkaline Phosphatase 178 U/L (38-126); Blood Urea Nitrogen 23 mg/dl (7-17); Calcium 9.1 mg/dl (8.4-10.2); Carbon Dioxide 29 mmol/L (22-30); Chloride 104 mmol/L (98-107); Glucose 94 mg/dl (70-99); Iron 100 ug/dl (37-170); Potassium 3.9 mmol/L (3.5-5.1); Sodium 138 mmol/L (135-145); Total Bilirubin 0.7 mg/dl (0.2-1.3); Total Protein 6.9 g/dl (6.3-8.2); eGFR > 60.00
[2023-06-19 10:15] LABS: Erythrocyte Sed Rate 28 mm/hour (0-20)
[2023-06-19 10:20] LABS: Percent Saturation 35 % (20-50); Total Iron Binding Capacity 282 ug/dl (265-497)
== END ==
LOC: HWLAB 07:06
PROVIDERS: ATTENDING PHYSICIAN Nurse Practitioner Family
DX: D50.9 Iron deficiency anemia, unspecified (principal); Z13.1 Encounter for screening for diabetes mellitus
CPT/HCPCS: 36415; 80053; 83540; 83550; 85025; 85652

== ENCOUNTER → 2023-10-16 07:20 | Outpatient (REF) | payer MEDICARE, SELFPAY ==
[2023-10-16 10:16] LABS: % Basophils 1.1 % (0-2); % Eosinophils 7.8 % (0-6); % Immature Granulocytes 0.3 % (0-0.5); % Lymphocytes 22.6 % (20.5-51.1); % Monocytes 8.6 % (1.7-9.3); % Neutrophils 59.6 % (42.2-75.2); Absolute Basophils 0.1 10^3/uL (0-0.2); Absolute Eosinophils 0.5 10^3/uL (0-0.7); Absolute Lymphocytes 1.4 10^3/uL (1.2-3.4); Absolute Monocytes 0.5 10^3/uL (0.1-0.6); Absolute Neutrophils 3.7 10^3/uL (1.4-6.5); Hematocrit 42.7 % (37.0-47.0); Hemoglobin 14.4 g/dL (12.0-16.0); Mean Corp Hgb Conc. 33.7 g/dL (33.0-37.0); Mean Corpuscular Hgb 29.9 pg (27.0-31.0); Mean Corpuscular Volume 88.6 fL (81.0-99.0); Mean Platelet Volume 9.9 fL (7.4-10.4); Nucleated Red Blood Cells % 0 %; Platelet Count 266 10^3/uL (130-400); Red Blood Cell Count 4.82 10^6/uL (4.20-5.40); Red Cell Dist. Width 12.8 % (11.5-14.5); White Blood Cell Count 6.2 10^3/uL (4.8-10.8)
[2023-10-16 10:25] LABS: Iron 109 ug/dl (37-170)
[2023-10-16 10:34] LABS: Percent Saturation 40 % (20-50); Total Iron Binding Capacity 270 ug/dl (265-497)
== END ==
LOC: HWLAB 07:20
PROVIDERS: ATTENDING PHYSICIAN Nurse Practitioner Primary Care; FAMILY PHYSICIAN Nurse Practitioner Family
DX: D50.9 Iron deficiency anemia, unspecified (principal)
CPT/HCPCS: 36415; 82728; 83540; 83550; 85025

== ENCOUNTER → 2024-04-21 10:50 | Outpatient (REF) | payer MEDICARE, SELFPAY | LOC: RAD 10:50 | PROVIDERS: ATTENDING PHYSICIAN Surgery Vascular Surgery; FAMILY PHYSICIAN Nurse Practitioner Family | DX: I65.23 Occlusion and stenosis of bilateral carotid arteries (principal) | CPT/HCPCS: 93880 ==

== ENCOUNTER → 2024-07-28 07:13 | Outpatient (REF) | payer MEDICARE, SELFPAY ==
[2024-07-28 09:52] LABS: % Basophils 0.6 % (0-2); % Eosinophils 5.1 % (0-6); % Immature Granulocytes 0.5 % (0-0.5); % Lymphocytes 22.3 % (20.5-51.1); % Monocytes 8.5 % (1.7-9.3); Absolute Eosinophils 0.3 10^3/uL (0-0.7); Absolute Lymphocytes 1.4 10^3/uL (1.2-3.4); Absolute Monocytes 0.5 10^3/uL (0.1-0.6); Absolute Neutrophils 3.9 10^3/uL (1.4-6.5); Hematocrit 47.5 % (37.0-47.0); Hemoglobin 15.6 g/dL (12.0-16.0); Mean Corp Hgb Conc. 32.8 g/dL (33.0-37.0); Mean Corpuscular Hgb 29.5 pg (27.0-31.0); Mean Platelet Volume 9.8 fL (7.4-10.4); Nucleated Red Blood Cells % 0 %; Platelet Count 253 10^3/uL (130-400); Red Blood Cell Count 5.28 10^6/uL (4.20-5.40); Red Cell Dist. Width 12.6 % (11.5-14.5); White Blood Cell Count 6.2 10^3/uL (4.8-10.8)
[2024-07-28 09:53] LABS: ALT (SGPT) 51 U/L (0-35); AST (SGOT) 36 U/L (14-36); Albumin 4.2 g/dl (3.5-5.0); Alkaline Phosphatase 173 U/L (38-126); Blood Urea Nitrogen 22 mg/dl (7-17); Calcium 9.4 mg/dl (8.4-10.2); Carbon Dioxide 30 mmol/L (22-30); Chloride 107 mmol/L (98-107); Glucose 105 mg/dl (70-99); HDL Cholesterol 61 mg/dl; LDL Cholesterol, Calculated 84 mg/dl; Sodium 143 mmol/L (135-145); Total Bilirubin 0.6 mg/dl (0.2-1.3); Total Cholesterol 175 mg/dl (50-199); Total Protein 6.9 g/dl (6.3-8.2); Triglyceride 153 mg/dl (10-149); Very Low Density Lipoprotein 30 mg/dl (0-30); eGFR > 60.00
[2024-07-28 10:23] LABS: Urine Albumin 1+ (Neg - Trace); Urine Bilirubin Negative (Negative); Urine Character Clear (Clear); Urine Color Yellow; Urine Glucose Negative (Negative); Urine Ketone Negative (Negative); Urine Leukocyte Negative (Negative); Urine Nitrite Negative (Negative); Urine Occult Blood Negative (Negative); Urine Urobilinogen Negative (Neg - 1+); Urine pH 6.5 (5.0-9.0)
[2024-07-28 10:55] LABS: Urine Red Blood Cell 0-2 /HPF (0-2)
== END ==
LOC: HWLAB 07:13
PROVIDERS: ATTENDING PHYSICIAN Nurse Practitioner Family
DX: Z13.89 Encounter for screening for other disorder (principal); Z13.1 Encounter for screening for diabetes mellitus; Z13.220 Encounter for screening for lipoid disorders; I65.29 Occlusion and stenosis of unspecified carotid artery; J18.9 Pneumonia, unspecified organism
CPT/HCPCS: 36415; 80053; 80061; 81003; 81015; 85025

== ENCOUNTER → 2024-09-27 07:32 | Outpatient (REF) | payer MEDICARE, SELFPAY ==
[2024-09-27 10:21] LABS: Iron 71 ug/dl (37-170)
[2024-09-27 10:29] LABS: % Basophils 0.6 % (0-2); % Eosinophils 5.8 % (0-6); % Immature Granulocytes 0.1 % (0-0.5); % Lymphocytes 16.5 % (20.5-51.1); % Monocytes 9.4 % (1.7-9.3); % Neutrophils 67.6 % (42.2-75.2); Absolute Eosinophils 0.4 10^3/uL (0-0.7); Absolute Lymphocytes 1.1 10^3/uL (1.2-3.4); Absolute Monocytes 0.7 10^3/uL (0.1-0.6); Absolute Neutrophils 4.7 10^3/uL (1.4-6.5); Hematocrit 44.3 % (37.0-47.0); Hemoglobin 14.4 g/dL (12.0-16.0); Mean Corp Hgb Conc. 32.5 g/dL (33.0-37.0); Mean Corpuscular Hgb 29.1 pg (27.0-31.0); Mean Corpuscular Volume 89.5 fL (81.0-99.0); Mean Platelet Volume 10.2 fL (7.4-10.4); Nucleated Red Blood Cells % 0 %; Platelet Count 244 10^3/uL (130-400); Red Blood Cell Count 4.95 10^6/uL (4.20-5.40); Red Cell Dist. Width 12.7 % (11.5-14.5); White Blood Cell Count 6.9 10^3/uL (4.8-10.8)
[2024-09-27 10:30] LABS: Percent Saturation 23 % (20-50); Total Iron Binding Capacity 303 ug/dl (265-497)
== END ==
LOC: HWLAB 07:32
PROVIDERS: ATTENDING PHYSICIAN Internal Medicine Hematology & Oncology; FAMILY PHYSICIAN Nurse Practitioner Family
DX: D50.9 Iron deficiency anemia, unspecified (principal)
CPT/HCPCS: 36415; 82728; 83540; 83550; 85025